=== PATIENT | male | born 1960 | race Caucasian/White ===

== ENCOUNTER 2017-11-24 16:50 | Emergency (ER) | payer OTHER, MEDICAID ==
[~2017-11-24] VITALS: Ht 167.6 cm; Wt 72.6 kg
[2017-11-24 17:19] VITALS: BP 116/80; Ht 167.6 cm; Wt 72.6 kg
== END 2017-11-24 23:51 | disposition left against medical advice (07) ==
LOC: ED 16:50
DX: Z53.21 Procedure and treatment not carried out due to patient leaving prior to being seen by health care provider (principal)

== ENCOUNTER 2021-01-01 08:08 | Emergency (ER) | payer OTHER ==
[~2021-01-01] VITALS: Ht 170.2 cm; Wt 78.0 kg
[2021-01-01 08:39] VITALS: Ht 170.2 cm; Wt 78.0 kg
[2021-01-01 09:25] VITALS: BP 123/73
== END 2021-01-01 09:25 | disposition home or self-care (01) ==
LOC: ED 08:08
DX: H61.21 Impacted cerumen, right ear (principal)